=== PATIENT | male | born 1990 | race Caucasian/White ===

== ENCOUNTER 2016-07-16 12:45 | Emergency (ER) | payer MEDICAID ==
[2016-07-16] MEDS ORDERED: NS 1,000 ML IV ONE (13:25)
[2016-07-16] MEDS ORDERED: PANTOPRAZOLE SODIUM 40 MG VIAL IVP ONE (13:26)
[2016-07-16 13:42] LABS: % IMMATURE GRANULYOCYTES 0.2 % (0.0-1.1); ABSOLUTE IMMATURE GRANULOCYTES 0.01 10^3/uL (0.00-0.10); ADD DIFF? NO; ADD MORPH? NO; ADD SCAN? NO; ATYPICAL LYMPHOCYTE FLAG 0 (0-99); FRAGMENT RBC FLAG 0 (0-99); HEMATOCRIT 48.8 % (40.0-51.0); HEMOGLOBIN 17.1 g/dL (13.7-17.5); LEFT SHIFT FLG 0 (0-99); LIPEMIA HEMOLYSIS FLAG 90 (0-99); MEAN CELL HEMOGLOBIN 30.2 pg (27.9-34.1); MEAN CELL VOLUME 86.1 fL (81.5-99.8); MEAN PLATELET VOLUME 9.9 fL (8.7-11.7); PLATELET CLUMPS FLAG 0 (0-99); PLATELET COUNT 230 10^3/uL (150-400); RED BLOOD CELL COUNT 5.67 10^6/uL (4.40-6.38); RED CELL DISTRIBUTION WIDTH 12.6 % (11.5-15.2)
[2016-07-16 14:00] LABS: ANION GAP 11 mEq/L (8-16); CALCIUM 9.8 mg/dL (8.5-10.4); CARBON DIOXIDE 24 mEq/l (22-31); CHLORIDE 107 mEq/L (97-110); CREATININE 0.8 mg/dL (0.7-1.3); GLOMERULAR FILTRATION RATE > 60; GLUCOSE 95 mg/dL (70-100); POTASSIUM 4.5 mEq/L (3.5-5.2); SODIUM 142 mEq/L (134-144)
[2016-07-16 14:29] LABS: ALBUMIN 4.4 g/dL (3.5-5.0); BILIRUBIN-CONJUGATED 0.4 mg/dL (0.0-0.5); BILIRUBIN-UNCONJUGATED 0.6 mg/dL (0.0-1.1); TOTAL PROTEIN 6.8 g/dL (6.3-8.2)
--- NOTE | 2016-07-16 14:46 | EDPHY ---
H & P Stated Complaint: wants 2nd opinion on diagnosis given at [facility] - GERD. Time Seen by Provider: 07/16/16 13:07 HPI/ROS: CHIEF COMPLAINT: Abdominal pain HISTORY OF PRESENT ILLNESS: 25-year-old male states that for the last year and a half he has had intermittent episodes of very severe epigastric pain which sometimes radiates around to his back. These episodes have become more more frequent. They occur 30 minutes to an hour after eating. Typically they occur in the evenings. He has never had vomiting. No fevers with them. No diarrhea. No change in his stools. No blood in his stools. Patient went to [facility] 2 days ago was diagnosed with GERD. He was prescribed Nexium. 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 Patient has had no fevers or chills. No chest pain or shortness of breath. No palpitations lightheadedness or fainting. He does smoke, drinks significant amount of caffeine, drinks alcohol, and has been using ibuprofen regularly for chronic shoulder discomfort. REVIEW OF SYSTEMS: Aside from elements discussed in the HPI, a comprehensive 10-point review of systems was reviewed and is negative. PAST MEDICAL HISTORY: Chronic shoulder pain. SOCIAL HISTORY: Cigarette smoker, uses marijuana occasionally, stop drinking several days ago. VITAL SIGNS Reviewed by me. GENERAL: Well-developed, well-nourished, resting comfortably in no respiratory distress. HEENT: Atraumatic. Eyes: No icterus, no injection. Mouth: moist mucous membranes. No erythema or lesions. Neck: supple with no adenopathy. LUNGS: Clear to auscultation bilaterally, no wheezes, rhonchi or rales. CARDIAC: Regular rate and rhythm, no rubs, murmurs or gallops. ABDOMEN: Soft, nontender, nondistended, bowel sounds normal. BACK: No CVA tenderness. EXTREMITIES: No trauma. No edema. Range of motion is normal throughout. NEURO: Alert and oriented, grossly nonfocal. SKIN: Warm and dry, no rash. PSYCHIATRIC: Normal mentation, no agitation. - Personal History Current Tetanus Diphtheria and Acellular Pertussis (TDAP): Yes Tetanus Vaccine Date: less than 10 years - Medical/Surgical History Hx Asthma: Yes Hx Chronic Respiratory Disease: No Hx Diabetes: No Hx Cardiac Disease: No Hx Renal Disease: No Hx Cirrhosis: No Hx Alcoholism: No Hx HIV/AIDS: No Hx Splenectomy or Spleen Trauma: No Other PMH: asthma as a kid, R tibia surgery, tonsils out at age 11. - Social History Smoking Status: Current every day smoker Constitutional: Initial Vital Signs Temperature (C) 36.7 C 07/16/16 12:47 Heart Rate 140 H 07/16/16 12:47 Respiratory Rate 16 07/16/16 12:47 Blood Pressure 120/75 07/16/16 12:47 O2 Sat (%) 97 07/16/16 12:47 Allergies/Adverse Reactions: venom-honey bee [bee venom (honey bee)] Allergy (Verified 10/01/14 23:23) Home Medications: Medication Instructions Recorded Fluticasone Nasal [Flonase Nasal 2 sprays NASAL BID #1 mdi 10/02/14 [place] (RX)] Medical Decision Making ED Course/Re-evaluation: IV was placed and patient received Protonix 40 mg IV. Laboratory evaluation including a lipase and LFTs were normal. I held a long discussion with the patient regarding his diagnosis. I feel that is appropriate for the patient to be started on a PPI and to follow up with his primary care physician or with gastroenterology for further studies if needed. I do not believe the patient needs an ultrasound today. Patient is comfortable with the discharge plan is reassured. Differential Diagnosis: Epigastric pain including but not limited to biliary colic, cholecystitis, peptic ulcer disease, pancreatitis, and gastroenteritis. - Data Points Laboratory Results: Laboratory Results 07/16/16 13:30 07/16/16 13:30 07/16/16 13:30 WBC 4.47 10^3/uL (3.80-9.50) RBC 5.67 10^6/uL (4.40-6.38) Hgb 17.1 g/dL (13.7-17.5) Hct 48.8 % (40.0-51.0) MCV 86.1 fL (81.5-99.8) MCH 30.2 pg (27.9-34.1) MCHC 35.0 g/dL (32.4-36.7) RDW 12.6 % (11.5-15.2) Plt Count 230 10^3/uL (150-400) MPV 9.9 fL (8.7-11.7) Neut % (Auto) 39.5 % (39.3-74.2) Lymph % (Auto) 34.2 % (15.0-45.0) Josephine % (Auto) 10.7 % (4.5-13.0) Eos % (Auto) 14.3 H % (0.6-7.6) Baso % (Auto) 1.1 % (0.3-1.7) Nucleat RBC Rel Count 0.0 % (0.0-0.2) Absolute Neuts (auto) 1.76 10^3/uL (1.70-6.50) Absolute Lymphs (auto) 1.53 10^3/uL (1.00-3.00) Absolute Monos (auto) 0.48 10^3/uL (0.30-0.80) Absolute Eos (auto) 0.64 H 10^3/uL (0.03-0.40) Absolute Basos (auto) 0.05 10^3/uL (0.02-0.10) Absolute Nucleated RBC 0.00 10^3/uL (0-0.01) Immature Gran % 0.2 % (0.0-1.1) Immature Gran # 0.01 10^3/uL (0.00-0.10) Sodium 142 mEq/L (134-144) Potassium 4.5 mEq/L (3.5-5.2) Chloride 107 mEq/L (97-110) Carbon Dioxide 24 mEq/l (22-31) Anion Gap 11 mEq/L (8-16) BUN 14 mg/dL (7-23) Creatinine 0.8 mg/dL (0.7-1.3) Estimated GFR > 60 Glucose 95 mg/dL (70-100) Calcium 9.8 mg/dL (8.5-10.4) Total Bilirubin 1.0 mg/dL (0.1-1.4) Conjugated Bilirubin 0.4 mg/dL (0.0-0.5) Unconjugated Bilirubin 0.6 mg/dL (0.0-1.1) AST 23 IU/L (17-59) ALT 36 IU/L (21-72) Alkaline Phosphatase 72 IU/L (38-126) Total Protein 6.8 g/dL (6.3-8.2) Albumin 4.4 g/dL (3.5-5.0) Lipase 39.0 IU/L (23-300) Medications Given: Discontinued Medications Sodium Chloride (Ns) 1,000 mls @ 0 mls/hr IV ONCE ONE PRN Reason: Wide Open Stop: 07/16/16 13:26 Last Admin: 07/16/16 13:46 Dose: 1,000 mls Pantoprazole Sodium (Protonix) 40 mg IVP EDNOW ONE Stop: 07/16/16 13:27 Last Admin: 07/16/16 13:47 Dose: 40 mg Departure - Departure Disposition: Home, Routine, Self-Care Clinical Impression: Abdominal pain, Presumed gastritis Condition: Good Instructions: Gastritis (ED), Diet for Stomach Ulcers and Gastritis (ED) Additional Instructions: Please begin taking the Nexium as directed. You may also try Tums before meals to decrease the discomfort. You been given referral to Dr. Ramirez, he is a [employer] manager. Please follow-up if needed. I would recommend that you take the Nexium for 2 weeks to see if this helps decrease your symptomatology. Referrals: [place],. [Primary Care Provider] - As per Instructions Markus Ramirez MD [Medical Doctor] - As per Instructions
[2016-07-16 15:02] VITALS: BP 138/61; PULSE 66; RESP 14; TEMP 96.8; O2SAT 95
== END 2016-07-16 15:01 | disposition home or self-care (01) ==
DX: R10.9 Unspecified abdominal pain (principal); J45.909 Unspecified asthma, uncomplicated; F17.210 Nicotine dependence, cigarettes, uncomplicated
CPT/HCPCS: 96374

== ENCOUNTER 2016-08-20 14:02 | Day surgery (SDC) | payer MEDICAID ==
[2016-08-20] MEDS ORDERED: MIDAZOLAM 2 MG/2 ML VIAL ONE (15:17)
[2016-08-20] MEDS ORDERED: PROPOFOL/EMULSION 500 MG/50 ML BOTTLE IV ONE (15:20)
--- NOTE | 2016-08-20 16:21 | GPN ---
[f rep st] PROCEDURE NOTE PROCEDURE PERFORMED: Gastroscopy with biopsies. INDICATIONS: The patient is a 25-year-old male with longstanding history of dyspepsia, which had wo rsened more recently, and he was seen last month in my clinic by my PA, Jasmin Shaw, started t reatment on Nexium with improvement in symptoms, but because of severity, gastroscopy is being perfo rmed to evaluate for alternative causes of symptoms besides peptic ulcer disease. DESCRIPTION OF PROCEDURE: After proper consent was obtained, the patient was placed in the left lat eral decubitus position. He received IV general anesthesia. Video gastroscope was introduced throu gh the mouth and esophagus, in the stomach, past the pylorus into the duodenum. Findings as follows: 1. Esophagus is normal. 2. Stomach is normal. Biopsies were taken to rule out H pylori. 3. Mild duodenitis is seen in the bulb of the duodenum. Biopsies were taken to confirm that this i s peptic and not celiac in nature. At this point, the instrument was removed. The patient tolerated the procedure well, was returned t o the recovery room in stable condition. RECOMMENDATIONS: 1. I will follow up on biopsy reports and adjust therapy accordingly. 2. If this is just peptic ulcer disease, would want him on a total of at least 12 weeks of Nexium a nd then to avoid nonsteroidals going forward. /[id number]/MODL
== END 2016-08-20 16:35 | disposition home or self-care (01) ==
LOC: FSGY 14:02
PROVIDERS: ATTEND Internal Medicine Gastroenterology
PROC: 0DB98ZX Excision of Duodenum, Via Natural or Artificial Opening Endoscopic, Diagnostic (ICD-10-PCS; principal; 2016-08-20 15:15)
PROC: 0DB68ZX Excision of Stomach, Via Natural or Artificial Opening Endoscopic, Diagnostic (ICD-10-PCS; principal; 2016-08-20 15:15)
DX: K29.80 Duodenitis without bleeding (principal)
CPT/HCPCS: J2250; J2704